=== PATIENT | female | born 1985 | race Hispanic/Latino ===

== ENCOUNTER 2018-07-01 13:44 | Outpatient (CLI) | payer OTHER ==
--- NOTE | 2018-07-01 15:38 | ULT ---
COMPLETE OB ULTRASOUND GREATER THAN 14 WEEKS. 07/01/18 HISTORY: 32=year-old female with history of size and dates. Supervision of a high risk , second trime ster. Single viable intrauterine fetus is noted in breech presentation. Placenta is anterior. Amniotic flu id is within normal limits. The heart rate 136 beats per minute. Cervical length is somewhat ob scured. ANATOMY: Visualized brain, four chamber heart, three vessel cord, stomach, bladder, kidneys, spine, and extremity regions are unremarkable. BPD 4.3 cm - - 19 weeks, 1 day Head circumference 17.1 cm - - 19 weeks, 5 days Abdominal circumference 15.3 cm - - 20 weeks, 4 days Femur length 3.2 cm - - 20 weeks, 1 day IMPRESSION: Single viable intrauterine fetus in breech presentation with gestational age average of 20 weeks, 0 d ays. ERNESTO of 11/18/18. Estimated weight 338 grams. POS: LEVI
== END 2018-07-01 13:45 | disposition home or self-care (01) ==
LOC: BICULT 13:44
PROVIDERS: ATTEND Family Medicine
DX: O09.892 Supervision of other high risk pregnancies, second trimester (principal); Z3A.20 20 weeks gestation of pregnancy
CPT/HCPCS: 76805

== ENCOUNTER 2018-11-12 22:00 | Inpatient (IN) | payer MEDICAID, OTHER, SELFPAY ==
[2018-11-13] MEDS ORDERED: Misoprostol 200 MCG TAB PR PRN (00:14)
[2018-11-13] MEDS ORDERED: Lidocaine 1% (PF) 30 ML VIAL SC PRN (00:14)
[2018-11-13] MEDS ORDERED: Ondansetron PF 4 MG/2 ML Vial IVP PRN ×3 (00:14→17:27)
[2018-11-13] MEDS ORDERED: Ibuprofen 800 MG TAB PO PRN (00:14)
[2018-11-13] MEDS ORDERED: NS w/ Oxytocin 10 units 500 ML IV SCH ×2 (00:14)
[2018-11-13] MEDS ORDERED: Diphenoxylate HCl/Atropine Tablet PO PRN (00:14)
[2018-11-13] MEDS ORDERED: Carboprost 250 MCG/ML AMP IM PRN (00:14)
[2018-11-13] MEDS ORDERED: HYDROcodone/Acetaminophen 5/325 mg Tablet PO PRN ×2 (00:14→17:27)
[2018-11-13] MEDS ORDERED: Methylergonovine 0.2 MG/ML VIAL IM PRN (00:14)
[2018-11-13] MEDS ORDERED: Butorphanol Tartrate 1 MG/ML VIAL SLOW IVP PRN (00:14)
[2018-11-13 00:24] VITALS: BMI 32.4
[2018-11-13] MEDS: Lactated Ringer's 1,000 ML IV SCH ×3 (00:30→09:28)
[2018-11-13 00:44] LABS: Hemoglobin 9.8 g/dL (12.0-16.0); Mean Corpuscular HGB CONC 33.9 g/dL (32.0-36.0); Mean Corpuscular Hemoglobin 28.2 pg (27.0-31.0); Mean Corpuscular Volume 83.2 fL (78.0-98.0); Platelet Count 222 thou/uL (130-400); RBC Distribution Width 12.4 % (11.5-14.5); Red Blood Cell (RBC) Count 3.49 mill/uL (4.20-5.40); White Blood Cell (WBC) Count 8.1 thou/uL (4.8-10.8)
[2018-11-13 01:23] LABS: HBSAg Index 0.23 S/CO (0-0.99); Hep B Surf Ag Non-Reactive S/CO (NonReactive)
[2018-11-13 05:46] LABS: Syphilis Antibody Nonreactive (Nonreactive); Syphilis Antibody Index 0.07 S/CO (<1.00 Non-Reactive)
[2018-11-13] MEDS: Misoprostol 100 MCG TAB PO SCH ×2 (05:57→19:01)
[2018-11-13] MEDS ORDERED: Fentanyl 4 mcg/Bup 0.1% Cadd 100 ML ONE (07:08)
[2018-11-13] MEDS ORDERED: Lidocaine 1.5%/Epinephrine 1:200,000 5 ML AMPUL IJ ONE (07:19)
[2018-11-13] MEDS ORDERED: diphenhydrAMINE 50 MG/ML VIAL IVP PRN (09:48)
[2018-11-13] MEDS ORDERED: ePHEDrine/0.9% NaCl/PF SYRINGE 50 mg/10 ml SLOW IVP PRN (09:48)
[2018-11-13] MEDS ORDERED: Eucerin (Mineral Oil/Petrolatum,White) 30 gm Jar TOP PRN (09:48)
[2018-11-13] MEDS ORDERED: Naloxone HCl 0.4 mg/ml Vial IVP PRN ×2 (09:48)
[2018-11-13] MEDS ORDERED: Acetaminophen 325 MG TAB PO PRN (09:48)
[2018-11-13] MEDS ORDERED: Promethazine HCl 25 MG/ML VIAL IM PRN (09:48)
[2018-11-13] MEDS ORDERED: Lactated Ringer's 500 ML IV PRN (09:48)
[2018-11-13] MEDS ORDERED: Fentanyl 4 mcg/Bupivacaine 0.1% Cassette 100 ML EPIDURAL SCH (10:00)
[2018-11-13] MEDS ORDERED: Communication Order-Pharmacy FS SCH (10:00)
[2018-11-13] MEDS ORDERED: Acetaminophen 500 MG TAB PO PRN (10:04)
[2018-11-13] MEDS: NS / Oxytocin 40 units/1000ml 1,000 ML IV PRN ×2 (11:53→13:07)
[2018-11-13] MEDS ORDERED: Lanolin Ointment 7 GM TUBE TOP PRN (17:27)
[2018-11-13] MEDS ORDERED: diphenhydrAMINE 25 MG CAP PO PRN (17:27)
[2018-11-13] MEDS ORDERED: Bisacodyl 10 MG SUPP PR PRN (17:27)
[2018-11-13] MEDS ORDERED: Benzocaine/Menthol 20-0.5% 60 ML CAN TOP PRN (17:27)
[2018-11-13] MEDS ORDERED: Milk Of Magnesia 30 ML UDCUP PO PRN (17:27)
[2018-11-13] MEDS ORDERED: NS / Oxytocin 40 units/1000ml 1,000 ML IV SCH (17:27)
[2018-11-13] MEDS: HYDROcodone/Acetaminophen 5/325 mg Tablet PO PRN (17:36)
[2018-11-13] MEDS ORDERED: Bupivacaine 0.25% HCL 30 ML VIAL ONE (18:00)
[2018-11-13] MEDS ORDERED: Bupivacaine/Epinephrine 0.25% 30 ML VIAL ONE (18:00)
[2018-11-13] MEDS: Ferrous Sulfate 325 MG TAB PO SCH (19:01)
[2018-11-13] MEDS: Ibuprofen 800 MG TAB PO SCH ×2 (19:02→21:28)
[2018-11-13] MEDS: Docusate Calcium (SURFAK) 240 MG CAP PO SCH (21:28)
[2018-11-14] MEDS: HYDROcodone/Acetaminophen 5/325 mg Tablet PO PRN ×2 (00:41→09:17)
[2018-11-14] MEDS: Ibuprofen 800 MG TAB PO SCH (05:54)
[2018-11-14] MEDS: Docusate Calcium (SURFAK) 240 MG CAP PO SCH (08:03)
[2018-11-14 08:06] LABS: Hemoglobin 7.7 g/dL (12.0-16.0); Mean Corpuscular HGB CONC 33.3 g/dL (32.0-36.0); Mean Corpuscular Hemoglobin 28.6 pg (27.0-31.0); Mean Corpuscular Volume 85.8 fL (78.0-98.0); Platelet Count 167 thou/uL (130-400); RBC Distribution Width 12.6 % (11.5-14.5); Red Blood Cell (RBC) Count 2.67 mill/uL (4.20-5.40); White Blood Cell (WBC) Count 8.3 thou/uL (4.8-10.8)
[2018-11-14] MEDS: Ferrous Sulfate 325 MG TAB PO SCH (08:06)
[2018-11-14] MEDS ORDERED: Prenatal Vitamin 1 TAB PO SCH (09:00)
[2018-11-14 11:40] VITALS: BP 113/69; TEMP 99.1
== END 2018-11-14 17:17 | disposition home or self-care (01) | DRG 807 ==
LOC: L&D 23:53 → 3SE 11-13 18:59
PROVIDERS: ADMIT Family Medicine; ATTEND Family Medicine
PROC: 10E0XZZ Delivery of Products of Conception, External Approach (ICD-10-PCS; principal; 2018-11-13)
PROC: 3E033VJ Introduction of Other Hormone into Peripheral Vein, Percutaneous Approach (ICD-10-PCS; 2018-11-13)
PROC: 10907ZC Drainage of Amniotic Fluid, Therapeutic from Products of Conception, Via Natural or Artificial Opening (ICD-10-PCS; 2018-11-13)
DX: O99.824 Streptococcus B carrier state complicating childbirth (principal); Z37.0 Single live birth; Z3A.39 39 weeks gestation of pregnancy
CPT/HCPCS: 36415; 51702; 85027; 86780; 86850; 86900; 86901; 87340; J0690; J1200; J2001; J2405; J3490; S0020

== ENCOUNTER 2020-07-22 14:23 | Day surgery (SDC) | payer OTHER ==
[2020-07-22 15:18] VITALS: BMI 29.8
[2020-07-22] MEDS ORDERED: hydrALAZINE 20 MG/ML VIAL SLOW IVP PRN (15:38)
--- NOTE | 2020-07-22 15:42 | PDOC.FPROB ---
FMR OB H&P: HPI - History of Present Illness Chief Complaint: abdominal/back pain Indentification: 34 yo at 35.5 wga History of Present Illness: Patient is here for abdominal pain onset 2 weeks ago and right leg pain for past 2 days which has caused her inability to walk. Pain starts at low right back and radiates down her right buttocks and stops at her right knee. Denies weakness in the leg. Has much pain with walking. She also has noticed "bumps" appear in her vulvar area over the last couple of days. Her abdominal pain feels like contractions. Denies vaginal bleeding, vaginal discharge. Endorses FM. + urinary frequency and burning on urination. Primary Care Physician: Junior FMR OB H&P: Current - Care : 8 Para: [id number] Gestational age: 35.5 Due date: 08/21/2020 Course/Complications: grand multip - OB Labs Blood type: A RH: positive Antibody Screen: negative HIV: negative RPR: negative HepBsAg: negative Rubella: immune Urine drug screen: negative Gonorrhea: negative Chlamydia: negative Pap Smear: normal GBS: unknown FMR OB H&P: History - Past Medical History PMH: None - OB History OB History: x5, no complications - CONSTRUCTION ESTIMATOR History CONSTRUCTION ESTIMATOR History: Denies. - Surgical History Sx History: Breast augmentation, February 2019 - Social History Social History: Denies smoking, drinking, drugs. - Family History Family History: Denies. FMR OB H&P: Medications - Current Home Medications: Medication Instructions Recorded Confirmed Type 21/Iron Fu/Folic Acid 1 tablet PO DAILY 12/05/14 07/22/20 History [ Complete Caplet] Allergies/Adverse Reactions: Allergies Allergy/AdvReac Type Severity Reaction Status Date / Time penicillin G Allergy Hives Verified 11/13/18 00:15 FMR OB H&P: ROS - Review of Systems General: denies: fever/chills Eyes: denies: vision changes ENT: denies: nasal congestion, sore throat Cardiovascular: denies: chest pain Respiratory: denies: cough, shortness of breath Gastrointestinal: reports: abdominal pain. denies: nausea, vomiting Genitourinary (Female): reports: dysuria, vaginal pain, contractions. denies: vaginal discharge, vaginal bleeding Musculoskeletal: reports: pain. denies: tenderness, redness, swelling Neurologic: denies: numbness Integumentary: denies: itching, rash Hematologic/Lymphatic: denies: prolonged or excessive bleeding FMR OB H&P: Vital Signs - Maternal Vital signs: BP 98/59 - Heart Tones Baseline: 135 Variability: moderate Acceleration: present Deceleration: absent [place] contractions every: 10 min FMR OB H&P: Physical Exam - Physical Exam General: NAD, awake, alert and oriented HEENT: normocephalic and atraumatic, MMM, no scleral icterus, grossly normal vision, grossly normal hearing Neck: trachea midline Heart: RRR, normal S1/S2, no edema General: CTAB, no respiratory distress Abdomen: soft, gravid, non-tender Musculoskeletal: FROM in all four extremities, other (no erythema, TTP over R SI, Strength 5/5 LEs) Neurological: DTR +2, strength +5, no focal deficit Skin: no rash Deviation from normal: vulvar varicosities on left Lymphatic: no purpura, no petechia Psychiatric: intact recent and remote memory, normal mood and affect - Pelvic Exam Vulva: normal hair distribution, no lesions, no blood SVE: closed/thick/high Membranes: intact Estimated Weight: 7 lbs FMR OB H&P: A/P - Problem List (1) Low back pain Current Visit: Yes Status: Acute Code(s): M54.5 - LOW BACK PAIN Disposition: 34 yo at 35.5 wga here for: Abdominal pain/Back pain - very few contractions on monitor. - most likely musculoskeletal with possible sciatica or piriformis component. Do not suspect DVT. - Will have patient hydrate 1 L PO and give tylenol prn Vulvar varicosities - likely secondary to changes and grand multiparity - conservative management Dysuria - UA pending. Discussion: Date/Time: 07/22/20 [id number] This H&P was discussed with Dr. Shaffer, who agrees with the above documentation and plan. Signature: Radha Shore MD PGY2 Addendum - Attending - Attending Attestation Date/Time: 07/22/20 1720 I personally evaluated the patient and discussed the management with Dr. Shore. I agree with the History, Examination, Assessment and Plan documented above.
[2020-07-22 16:37] LABS: Bacteria/HPF None Seen HPF (None Seen); Bilirubin Negative (Negative); Blood, Urine Negative (Negative); Clarity Clear (Clear); Glucose, Urine (Dipstick) Normal (Negative); Ketone, Urine Negative (Negative); Leukocyte Negative Leu/uL (Negative); Nitrite Negative (Negative); Protein, Urine (Dipstick) Negative (Neg-Trace); RBC/HPF 0-3 HPF (0-3); Specific Gravity, Urine 1.003 (1.002-1.036); Squamous Epithelial 0-3 HPF (0-3); Urobilinogen Normal mg/dL (Less than 2); WBC/HPF None Seen HPF (0-3)
--- NOTE | 2020-07-22 17:09 | PDOC.BPN ---
<Radha Shore - Last Filed: 07/22/20 17:07> - Brief Progress Note Encounter Date: 07/22/20 Encounter Time: 17:05 UA normal. Discussed various therapies for patient about her back and leg pain including PMNR referral, massage therapy, OMT or chiropractic adjustments specialized for . She understands pain will not improve much as long as she is . Patient was witnessed walking to restroom with mild difficulty. Likely she over-exerted herself yesterday preparing dinner. Encouraged pt and she agrees with discharge home. Patient discharged home. <Ryan Shaffer - Last Filed: 07/22/20 17:21> Addendum - Attending - Attending Attestation Date/Time: 07/22/20 1721 I personally evaluated the patient and discussed the management with Dr. Shore. I agree with the History, Examination, Assessment and Plan documented above.
== END 2020-07-22 17:33 | disposition home or self-care (01) ==
LOC: L&D/OP 14:23
PROVIDERS: ATTEND Family Medicine
DX: O99.891 Other specified diseases and conditions complicating pregnancy (principal); R10.9 Unspecified abdominal pain; M54.5 Low back pain; M79.604 Pain in right leg; O22.13 Genital varices in pregnancy, third trimester; Z3A.35 35 weeks gestation of pregnancy
CPT/HCPCS: 81001

== ENCOUNTER 2020-08-11 14:03 | Outpatient (CLI) | payer OTHER ==
[2020-08-12 02:04] LABS: SARS-CoV-2 MS2 Positive; SARS-CoV-2 N Gene Negative; SARS-CoV-2 S Gene Negative; SARS-CoV-2 by NAA Not Detected (NotDetected); SARS-CoV-2 orf1ab Negative
== END 2020-08-11 14:04 | disposition home or self-care (01) ==
LOC: LABBT 14:03
PROVIDERS: ATTEND Family Medicine
DX: Z20.828 Contact with and (suspected) exposure to other viral communicable diseases (principal)
CPT/HCPCS: 87635; U0003

== ENCOUNTER 2020-08-14 05:30 | Inpatient (IN) | payer OTHER, SELFPAY ==
[2020-08-14] MEDS ORDERED: Ondansetron PF 4 MG/2 ML Vial IVP PRN ×2 (06:04→20:41)
[2020-08-14] MEDS ORDERED: NS / Oxytocin 40 units/1000ml 1,000 ML IV PRN (06:04)
[2020-08-14] MEDS ORDERED: Ibuprofen 800 MG TAB PO PRN (06:04)
[2020-08-14] MEDS ORDERED: Carboprost 250 MCG/ML AMP IM PRN (06:04)
[2020-08-14] MEDS ORDERED: Methylergonovine 0.2 MG/ML VIAL IM PRN (06:04)
[2020-08-14] MEDS ORDERED: Promethazine HCl 25 MG/ML VIAL IM PRN ×2 (06:04→20:41)
[2020-08-14] MEDS ORDERED: Diphenoxylate HCl/Atropine Tablet PO PRN (06:04)
[2020-08-14] MEDS ORDERED: hydrALAZINE 20 MG/ML VIAL SLOW IVP PRN ×2 (06:04→20:41)
[2020-08-14] MEDS ORDERED: Misoprostol 200 MCG TAB PR PRN (06:04)
[2020-08-14] MEDS ORDERED: Butorphanol Tartrate 1 MG/ML VIAL SLOW IVP PRN ×2 (06:04→07:40)
[2020-08-14] MEDS ORDERED: HYDROcodone/Acetaminophen 5/325 mg Tablet PO PRN ×3 (06:04→20:41)
[2020-08-14] MEDS ORDERED: Lidocaine 1% (PF) 30 ML VIAL SC PRN (06:04)
[2020-08-14 06:10] VITALS: BMI 30.2
[2020-08-14] MEDS: Lactated Ringer's 1,000 ML IV SCH ×2 (06:24→08:42)
[2020-08-14] MEDS ORDERED: NS w/ Oxytocin 30 units 500 ML ONE (06:28)
[2020-08-14 06:49] LABS: Hemoglobin 10.4 g/dL (12.0-16.0); Mean Corpuscular HGB CONC 34.4 g/dL (32.0-36.0); Mean Corpuscular Hemoglobin 29.4 pg (27.0-31.0); Mean Corpuscular Volume 85.4 fL (78.0-98.0); Mean Platelet Volume 8.2 fL (7.4-10.4); Platelet Count 225 thou/uL (130-400); RBC Distribution Width 11.8 % (11.5-14.5); Red Blood Cell (RBC) Count 3.54 mill/uL (4.20-5.40); White Blood Cell (WBC) Count 8.8 thou/uL (4.8-10.8)
[2020-08-14] MEDS: CEFAZOLIN 2 GM in Premix Bag 1 BAG IVPB SCH ×3 (07:09→22:46)
[2020-08-14 07:41] LABS: HBSAg Index 0.23 S/CO (0-0.99); Hep B Surf Ag Non-Reactive S/CO (NonReactive); Syphilis Antibody Nonreactive (Nonreactive); Syphilis Antibody Index 0.06 S/CO (<1.00 Non-Reactive)
[2020-08-14] MEDS: Bupivacaine 0.5% 20 ML, fentaNYL Citrate/PF 400 MCG in Sodium Chloride 0.9% 72 ML EPIDURAL SCH ×2 (08:41→17:07)
[2020-08-14] MEDS ORDERED: diphenhydrAMINE 50 MG/ML VIAL ONE (10:21)
[2020-08-14] MEDS ORDERED: Lidocaine 2% PF 5 ML VIAL ONE (10:40)
[2020-08-14] MEDS ORDERED: Bupivacaine/Epinephrine 0.25% 30 ML VIAL ONE (10:40)
[2020-08-14] MEDS ORDERED: ePHEDrine 50 MG/ML VIAL ONE (10:40)
[2020-08-14] MEDS ORDERED: Tranexamic Acid 1,000 MG/10 ML VIAL ONE (18:21)
[2020-08-14] MEDS ORDERED: Milk Of Magnesia 30 ML UDCUP PO PRN (20:41)
[2020-08-14] MEDS ORDERED: diphenhydrAMINE 25 MG CAP PO PRN (20:41)
[2020-08-14] MEDS ORDERED: Bisacodyl 10 MG SUPP PR PRN (20:41)
[2020-08-14] MEDS ORDERED: Benzocaine-Menthol 82.5 ML CAN TOP PRN (20:41)
[2020-08-14] MEDS ORDERED: Lanolin Ointment 7 GM TUBE TOP PRN (20:41)
[2020-08-14] MEDS ORDERED: NS w/ Oxytocin 30 units 500 ML IV SCH (20:41)
[2020-08-14] MEDS: Ibuprofen 800 MG TAB PO SCH (22:40)
[2020-08-14] MEDS: Docusate Calcium (SURFAK) 240 MG CAP PO SCH (22:45)
[2020-08-15] MEDS: HYDROcodone/Acetaminophen 5/325 mg Tablet PO PRN ×3 (00:13→09:05)
[2020-08-15] MEDS: Ibuprofen 800 MG TAB PO SCH ×3 (05:00→20:51)
[2020-08-15 06:02] LABS: Hemoglobin 9.5 g/dL (12.0-16.0); Mean Corpuscular HGB CONC 34.1 g/dL (32.0-36.0); Mean Corpuscular Hemoglobin 29.1 pg (27.0-31.0); Mean Corpuscular Volume 85.2 fL (78.0-98.0); Platelet Count 192 thou/uL (130-400); RBC Distribution Width 11.8 % (11.5-14.5); Red Blood Cell (RBC) Count 3.28 mill/uL (4.20-5.40); White Blood Cell (WBC) Count 12.5 thou/uL (4.8-10.8)
[2020-08-15] MEDS: Ferrous Sulfate 325 MG TAB PO SCH ×2 (08:27→17:59)
[2020-08-15] MEDS: Docusate Calcium (SURFAK) 240 MG CAP PO SCH (08:27)
[2020-08-15] MEDS ORDERED: Prenatal Vitamin 1 TAB PO SCH (09:00)
[2020-08-15] MEDS ORDERED: Adacel (T-DAP) 0.5 ML SYRINGE IM ONE (09:00)
[2020-08-15 21:21] VITALS: BP 101/67; TEMP 98.1
== END 2020-08-15 21:30 | disposition home or self-care (01) | DRG 807 ==
LOC: L&D 05:35 → 3SW 21:48
PROVIDERS: ADMIT Family Medicine; ATTEND Family Medicine
PROC: 10E0XZZ Delivery of Products of Conception, External Approach (ICD-10-PCS; principal; 2020-08-14)
PROC: 10907ZC Drainage of Amniotic Fluid, Therapeutic from Products of Conception, Via Natural or Artificial Opening (ICD-10-PCS; 2020-08-14)
PROC: 3E033VJ Introduction of Other Hormone into Peripheral Vein, Percutaneous Approach (ICD-10-PCS; 2020-08-14)
DX: O99.824 Streptococcus B carrier state complicating childbirth (principal); Z37.0 Single live birth; Z3A.39 39 weeks gestation of pregnancy; O62.2 Other uterine inertia
CPT/HCPCS: 36415; 51702; 85027; 86780; 86850; 86900; 86901; 87340; J0690; J2001; J2210; J2405; J3010; J3490; J7030

== ENCOUNTER 2022-01-08 22:55 | Emergency (ER) | payer MEDICAID, SELFPAY ==
[2022-01-08 23:16] LABS: Bilirubin Negative (Negative); Blood, Urine 3+ (Negative); Clarity Clear (Clear); Glucose, Urine (Dipstick) Normal (Negative); Ketone, Urine Negative (Negative); Leukocyte 250 Leu/uL (Negative); Nitrite Negative (Negative); Protein, Urine (Dipstick) Negative (Neg-Trace); RBC/HPF 0-3 HPF (0-3); Specific Gravity, Urine 1.013 (1.002-1.036); Squamous Epithelial 0-3 HPF (0-3); Urobilinogen Normal mg/dL (Less than 2); pH, Urine 6.5 (5.0-9.0)
[2022-01-08 23:17] LABS: Bacteria/HPF 1+ HPF (None Seen)
== END 2022-01-08 23:57 | disposition home or self-care (01) ==
LOC: ERS 22:55
DX: N39.0 Urinary tract infection, site not specified (principal)
CPT/HCPCS: 81003; 81015; 87086; 99283

== ENCOUNTER 2022-02-21 10:17 | Emergency (ER) | payer SELFPAY ==
[2022-02-21 11:05] LABS: Bilirubin Negative (Negative); Blood, Urine Negative (Negative); Clarity Clear (Clear); Glucose, Urine (Dipstick) Normal (Negative); Ketone, Urine Negative (Negative); Leukocyte Negative Leu/uL (Negative); Nitrite Negative (Negative); Protein, Urine (Dipstick) Negative (Neg-Trace); Specific Gravity, Urine 1.016 (1.002-1.036); Urobilinogen Normal mg/dL (Less than 2)
[2022-02-21] MEDS ORDERED: Ketorolac Tromethamine 30 MG/ML VIAL ONE (11:05)
[2022-02-21] MEDS ORDERED: Ondansetron PF 4 MG/2 ML Vial ONE (11:05)
[2022-02-21 11:06] LABS: Pregnancy Test - Urine (BHCG) Negative (Negative); Pregu Control Background? CLEAR/WHITE (CLR/WHITE); Pregu Control Bar Appear? YES (CONTROL BAR); Specific Gravity 1.016 (1.002-1.036)
[2022-02-21 11:10] LABS: #Basophils 0.1 thou/uL (0.0-0.2); #Eosinphils 0.4 thou/uL (0.0-0.7); #Lymphocytes 2.9 thou/uL (1.20-3.40); #Monocytes 0.6 thou/uL (0.11-0.59); #Neutrophils 4.8 thou/uL (1.40-6.50); %Basophils 0.8 % (0.0-1.0); %Eosinophils 4.1 % (0.0-10.0); %Lymphocytes 33.2 % (21.0-51.0); %Monocytes 6.6 % (0.0-10.0); %Neutrophils 55.3 % (42.0-75.0); Hemoglobin 13.7 g/dL (12.0-16.0); Mean Corpuscular Volume 94.1 fL (78.0-98.0); Mean Platelet Volume 7.6 fL (7.4-10.4); Platelet Count 249 thou/uL (130-400); RBC Distribution Width 11.4 % (11.5-14.5); Red Blood Cell (RBC) Count 4.29 mill/uL (4.20-5.40); White Blood Cell (WBC) Count 8.6 thou/uL (4.8-10.8)
[2022-02-21] MEDS ORDERED: Iopamidol-370 76% 500 ML 1 ML ONE (11:13)
[2022-02-21 11:32] LABS: ALT (SGPT) 17 U/L (8-55); AST (SGOT) 17 U/L (5-34); Albumin 3.8 g/dL (3.5-5.0); Alkaline Phosphatase 60 U/L (40-110); Anion Gap 13 mmol/L (10-20); BUN (Urea Nitrogen) 11 mg/dL (7.0-18.7); Bilirubin, Total 0.5 mg/dL (0.2-1.2); Calc. Creatinine Clearance 0 mL/min (70-130); Calcium 9.4 mg/dL (7.8-10.44); Carbon Dioxide 21 mmol/L (22-29); Chloride 107 mmol/L (98-107); Estimated GFR 99; Globulin 3.2 g/dL (2.4-3.5); Lipase 26 U/L (8-78); Potassium 3.7 mmol/L (3.5-5.1); Sodium 137 mmol/L (136-145)
[2022-02-21 11:40] LABS: Glucose 58 mg/dL (70-105)
== END 2022-02-21 13:09 | disposition home or self-care (01) ==
LOC: ERS 10:17
DX: K52.9 Noninfective gastroenteritis and colitis, unspecified (principal); N83.201 Unspecified ovarian cyst, right side
CPT/HCPCS: 36415; 74177; 80053; 81003; 81025; 83690; 85025; 96361; 96374; 96375; J1885; J2405; Q9967